=== PATIENT | female | born 1975 | race African-American/Black ===

== ENCOUNTER → 2017-10-22 | Outpatient (CLI) | payer OTHER ==
--- NOTE | 2017-10-23 09:31 | NM ---
Nuclear medicine thyroid scan and uptake Indication: Thyrotoxicosis, weight loss Technique: After the oral administration of 212.08 mCi of 123 small [id number] planar imaging of t he thyroid bed was performed. 6 and 24 hour uptake was also provided. Findings: Homogeneous radiotracer uptake is noted within the right and left lobes of the thyroid glan d. No focal hot or cold nodule identified within either thyroid lobe. The 6 and 24 hour radio iodine uptake is 4.2 and 21.1% respectively. Impression: Normal thyroid scan and uptake. Reported By:
== END ==
LOC: RAD 08:34
PROVIDERS: ATTEND Internal Medicine
DX: E05.80 Other thyrotoxicosis without thyrotoxic crisis or storm (principal)
CPT/HCPCS: 78014; A9516